=== PATIENT | male | born 1965 | race Caucasian/White ===

== ENCOUNTER 2025-04-21 21:16 | Emergency (ER) | payer BC, SELFPAY ==
[2025-04-21 21:26] VITALS: BP 152/97
[2025-04-21 21:57] LABS: Hematocrit 46.6 % (39.0-52.0); Hemoglobin 16.0 g/dL (13.0-18.0); Mean Corp Hgb Conc. 34.3 g/dL (33.0-37.0); Mean Corpuscular Volume 92.1 fL (80.0-94.0); Nucleated Red Blood Cells % 0 % (-); Platelet Count 212 10^3/uL (130-400); Red Cell Dist. Width 12.1 % (11.5-14.5)
[2025-04-21 22:14] LABS: ALT (SGPT) 20 U/L (0-50); AST (SGOT) 21 U/L (17-59); Albumin 4.7 g/dl (3.5-5.0); Alkaline Phosphatase 60 U/L (38-126); Blood Urea Nitrogen 16 mg/dl (9-20); Calcium 9.2 mg/dl (8.4-10.2); Carbon Dioxide 27 mmol/L (22-30); Chloride 105 mmol/L (98-107); Glucose 103 mg/dl (70-99); Potassium 4.5 mmol/L (3.5-5.1); Sodium 138 mmol/L (135-145); Total Protein 8.1 g/dl (6.3-8.2); eGFR > 60.00
[2025-04-21 22:27] LABS: Troponin I < 0.012 ng/ml
[2025-04-21 22:49] LABS: D-Dimer < 0.27 ug/mlFEU (0.00-0.50)
[2025-04-22 01:58] VITALS: BP 117/80; BMI 25.8
[2025-04-22 02:00] VITALS: BP 113/80
[2025-04-22 03:00] VITALS: BP 108/80
--- NOTE | 2025-04-22 03:31 | ED.GENMED ---
History of Present Illness
General
Chief Complaint: Musculo-Skeletal Complaint
Source: patient
Exam Limitations: none
Time Seen by Provider: 04/22/25 03:16
Nursing documentation reviewed up to this point in time: agreed with
History of Present Illness
History of Present Illness:
59-year-old male with past medical history of hypothyroidism presents to the ER today with concerns of upper back pain radiating to the right side. Pain began suddenly around 8 AM shortly forward patient was about to leave for work. Patient states
that the pain started suddenly. No inciting trauma or injury. No recent heavy lifting. Or twisting injury. The pain described as constant and dull but intensifies with deep breaths. Patient does not particularly feel short of breath. Patient
did try Advil [id number] which did not help. Did also try hot shower and warm compress which did not help. Patient went to urgent care and was told that he has an abnormality in his chest x-ray and he should report to the ER for further
evaluation. Patient denies any pain or swelling in his legs. He does not smoke. He denies any recent long distance travel.
Past History
Past History
ED Past Medical History: Hypothyroidism
ED Past Surgical History: Other (hernia)
Social History
Tobacco: Non-smoker
Alcohol: Occasional
Personal:
Living: with family
Review of Systems
Review of Systems
All Other Systems: ROS reviewed and negative except as documented in HPI and ROS
Phy Exam
Physical Exam
Physical Exam:
General: Patient is well appearing and in no acute distress; non-toxic
Skin: Warm and dry, no rashes or lesions
Head: Normocephalic, atraumatic
Eyes: Sclera non-icteric. EOMs intact.
Cardiac: Regular rate and rhythm, no murmurs
Peripheral Vascular: No lower extremity swelling or edema
Pulm: Normal respiratory effort, no wheezes, rales, or rhonchi
MSK: No midline spinal tenderness, no pain with ROM of right shoulder
Neuro: CN II-XII intact, no focal neurologic deficits.
Psychiatric: Appropriate mood and affect.
Course
Orders/Labs/Results
Orders:
Orders
04/21/25 21:35
Electrocardiogram (*1) Urgent
Reason for Study: Other
Other Reason for Exam: upper back pain
04/21/25 21:36
EKG- Treatment ONCE
04/21/25 21:48
Complete Blood Count/With Diff Urgent
Comprehensive Metabolic Panel Urgent
D-Dimer Urgent
Troponin I Urgent
04/22/25 03:55
CT Chest PE Study Urgent
Comment:
Reason For Exam: pleuric back pain
Abnormal Lab Results
04/21/25
21:48
MCH 31.6 H pg
(27.0-31.0)
MPV 10.5 H fL
(7.4-10.4)
Monocytes % 11.0 H %
(1.7-9.3)
Glucose 103 H mg/dl
(70-99)
04/21/25 21:48
04/21/25 21:48
Vital Signs
Initial and Last Documented VS:
Initial Vital Signs
Temp Pulse Resp BP Pulse Ox
97.5 F 74 18 152/97 97
04/21/25 21:26 04/21/25 21:26 04/21/25 21:26 04/21/25 21:26 04/21/25 21:26
Last Documented Vital Signs
Temp Pulse Resp BP Pulse Ox
97.5 F 64 16 131/87 97
04/21/25 21:26 04/22/25 06:06 04/22/25 06:06 04/22/25 06:06 04/22/25 06:06
MDM/Problems Addressed
Differential Diagnosis Includes:
ddx include musculoskeletal sprain/strain, osteoarthritis, spinal stenosis, pulmonary embolism, bronchitis, pneumothorax
MDM/Problems Addressed:
59-year-old male with past medical history of hypothyroidism presents to the ER today with concerns of upper back pain radiating to the right side. Pain began suddenly around 8 AM shortly forward patient was about to leave for work. Patient states
that the pain started suddenly. It is a lot worse when he takes a deep breath. On physical exam he is well-appearing in no acute distress. He has no midline spinal tenderness. His lungs are clear bilaterally. He is not hypoxic. He is not
tachycardic. He was told by urgent care provider that he has a concerning chest x-ray on my review I do not see any concerning findings. Patient had normal D-dimer, undetectable troponin and unremarkable blood work prior to my evaluation.
Reviewed findings with patient. Discussed with patient symptoms are likely musculoskeletal in nature. However, did discuss that normal D-dimer does not entirely exclude PE. Patient has no clear risk factors for pulmonary embolism. We had a long
discussion about obtaining CT scan versus close outpatient follow-up with PCP. Patient opts for CAT scan which was negative for PE but does show degenerative changes within the spine. Discussed findings with patient. Patient stable for discharge.
Patient will follow-up with possibly Ortho and continue conservative management at home.
Chronic conditions affecting care:
hypothyroidism
*Pulse Oximetry
SaO2: 95
Oxygen Mode of Delivery: Room air
Patient hypoxic: no
*Critical Care Note
Total Time (30-74mins, 75-104mins- exclusive of procedures): Not Applicable
ED Attending Note
-
Portions of this chart may have been created with voice recognition software.� Occasional wrong word or��sound alike� substitutions may have occurred due to the inherent limitations of voice recognition software.
Discharge Plan
Departure
Patient Disposition: Home (Routine Discharge)
Date of Disposition: 04/22/25
Time of Disposition: 05:35
Patient with high blood pressure during this ER visit?: Yes
Condition: Good
Discharge Problem:
Back pain
Instructions: Muscle and Bone Pain (DC), Back Pain, BLOOD PRESSURE
Referrals:
Vikki Matthew PA-C [Family Provider, Internal Medicine]
Chase Ríos MD [Active, Orthopedics] - Call in 1-3 days for appt
Activity Restrictions/Additional Instructions:
As discussed, you can continue to take ibuprofen and Tylenol for your pain. You can use ice and heat as needed as well. Please follow-up with your primary care provider. Regards to arthritic changes noticed on CAT scan, may need MRI in the future
for further evaluation. You can follow-up with orthopedics.
PLEASE RETURN TO THE ER SHOULD YOU DEVELOP CHEST, JAW PAIN, LEFT UPPER ARM PAIN, DIZZINESS, LIGHTHEADEDNESS, OR ANY OTHER SIGNS OR SYMPTOMS WORRISOME TO YOU.
Interventions
Interventions:
*Risk Screen - Suicide Last Done: 04/22/25 02:00
*General Assessment Last Done: 04/22/25 02:00
*Neglect/Abuse Screening Last Done: 04/22/25 02:00
*ED- Fall Risk Assessment Last Done: 04/22/25 02:00
*ED COVID-19 Vaccine History Last Done: 04/22/25 02:00
*Nursing Disposition Last Done: 04/22/25 06:06
ED-Musculoskeletal Assessment Last Done: 04/22/25 02:00
Discharge Date and Time
Discharge Date/Time: 04/22/25 05:45
Print Language: AMHARIC
[2025-04-22 04:09] VITALS: BP 131/87
[2025-04-22 06:06] VITALS: BP 131/87
== END 2025-04-22 05:45 | disposition home or self-care (01) ==
LOC: EMR 21:16
PROVIDERS: Emergency Medicine; EMERGENCY PHYSICIAN Emergency Medicine; FAMILY PHYSICIAN Physician Assistant Medical
DX: M54.6 Pain in thoracic spine (principal); R03.0 Elevated blood-pressure reading, without diagnosis of hypertension; E03.9 Hypothyroidism, unspecified; M47.819 Spondylosis without myelopathy or radiculopathy, site unspecified
CPT/HCPCS: 99284; 71275; 80053; 84484; 85025; 85379; 93005; Q9967